=== PATIENT | male | born 1945 | race Caucasian/White ===

== ENCOUNTER 2021-01-10 09:00 | Outpatient (RCR) | payer MEDICARE, BC, SELFPAY | END 2021-02-02 23:59 | disposition home or self-care (01) | LOC: CR 09:00 | PROVIDERS: PCP Family Medicine; Visit Provider Family Medicine ==

== ENCOUNTER 2021-03-04 08:00 | Outpatient (RCR) | payer MEDICARE, BC, SELFPAY | END 2021-03-04 23:59 | disposition home or self-care (01) | LOC: CR 08:00 | PROVIDERS: Visit Provider Family Medicine | DX: Z95.2 Presence of prosthetic heart valve (principal); Z51.89 Encounter for other specified aftercare; I25.2 Old myocardial infarction; Z95.5 Presence of coronary angioplasty implant and graft; I10 Essential (primary) hypertension | CPT/HCPCS: S9472 ==

== ENCOUNTER 2021-04-01 08:00 | Outpatient (RCR) | payer MEDICARE, BC, SELFPAY | END 2021-04-04 23:59 | disposition home or self-care (01) | LOC: CR 08:00 | PROVIDERS: Visit Provider Family Medicine | DX: Z51.89 Encounter for other specified aftercare (principal); Z95.2 Presence of prosthetic heart valve; I25.2 Old myocardial infarction | CPT/HCPCS: S9472 ==

== ENCOUNTER 2021-05-02 08:00 | Outpatient (RCR) | payer MEDICARE, BC, SELFPAY | END 2021-05-04 23:59 | disposition home or self-care (01) | LOC: CR 08:00 | PROVIDERS: Visit Provider Family Medicine | DX: Z51.89 Encounter for other specified aftercare (principal); Z95.2 Presence of prosthetic heart valve | CPT/HCPCS: S9472 ==